=== PATIENT | male | born 1960 | race Caucasian/White ===

== ENCOUNTER → 2018-03-02 14:26 | Outpatient (REF) | payer BC, SELFPAY ==
[2018-03-02 21:59] LABS: ALT 49 U/L (12-78); AST 24 U/L (15-37); Albumin 3.9 g/dL (3.4-5.0); Alkaline Phosphatase 81 U/L (46-116); Anion Gap 9.6 mmol/L (3-11); BUN 12 mg/dL (7-18); Bilirubin, Total 0.6 mg/dL (0.2-1.0); CO2 24.4 mmol/L (21.0-32.0); CREATININE 0.85 mg/dL (0.70-1.30); Calcium 8.7 mg/dL (8.5-10.1); Chloride 102 mmol/L (98-107); Cholesterol 231 mg/dL (50-200); Glucose 90 mg/dL (70-100); HDL Cholesterol 55 mg/dL (40-60); LDL CHOLESTEROL 149 mg/dL (<100); Potassium 3.9 mmol/L (3.5-5.1); Sodium 136 mmol/L (136-145); Total Protein 6.8 g/dL (6.4-8.2); Triglyceride 158 mg/dL (30-150)
== END ==
LOC: NCHCN 14:26
PROVIDERS: PCP Physician Assistant Medical; Visit Provider Physician Assistant Medical
DX: E78.5 Hyperlipidemia, unspecified (principal); I10 Essential (primary) hypertension
CPT/HCPCS: 80053; 80061; 83721

== ENCOUNTER 2018-11-08 16:19 | Outpatient (REF) | payer BC, SELFPAY ==
[2018-11-08 21:33] LABS: ALT 41 U/L (12-78); AST 20 U/L (15-37); Alkaline Phosphatase 87 U/L (46-116); Anion Gap 12.5 mmol/L (3-11); BUN 14 mg/dL (7-18); Bilirubin, Total 0.3 mg/dL (0.2-1.0); CO2 24.5 mmol/L (21.0-32.0); CREATININE 0.79 mg/dL (0.70-1.30); Calcium 9.2 mg/dL (8.5-10.1); Chloride 100 mmol/L (98-107); Cholesterol 240 mg/dL (50-200); Glucose 93 mg/dL (70-100); HDL Cholesterol 54 mg/dL (40-60); LDL CHOLESTEROL 146 mg/dL (<100); Potassium 4.1 mmol/L (3.5-5.1); Sodium 137 mmol/L (136-145); Total Protein 7.2 g/dL (6.4-8.2); Triglyceride 191 mg/dL (30-150)
== END 2018-11-08 16:39 ==
LOC: NCHCN 16:19
PROVIDERS: PCP Physician Assistant Medical; Visit Provider Physician Assistant Medical
DX: Z00.00 Encounter for general adult medical examination without abnormal findings (principal); Z13.220 Encounter for screening for lipoid disorders; Z13.228 Encounter for screening for other metabolic disorders
CPT/HCPCS: 80053; 80061; 83721

== ENCOUNTER 2019-02-03 12:18 | Emergency (ER) | payer BC, SELFPAY ==
[2019-02-03 12:20] VITALS: BP 138/80; PULSE 60; RESP 12; TEMP 37; O2SAT 98
--- NOTE | 2019-02-03 12:40 | W.ED.GENAD ---
Discharge Plan Disposition Patient Disposition: HOME Condition: Fair Discharge Details Chief Complaint: EyeProblem Clinical Impression: Chalazion left upper eyelid Primary Care Provider: Sintia Lambert ED Provider: Jocy Cheng Home Meds and New Rx's Prescriptions: Continued lisinopril 20 MG tablet 20 mg PO DAILY RF: 0 allopurinol 300 MG tablet 300 mg PO DAILY RF: 0 colchicine 0.6 MG capsule 0.6 mg PO PRN RF: 0 Discharge Instructions Instructions: Chalazion (ED) Additional Instructions: The finding of your eyelid is consistent with a chalazion. However, I am concerned he may be developing an infection, please use the erythromycin topical ointment as directed by nursing staff. Apply half-inch to the left eye 4 times daily for the next 5 days. Please use warm compresses to the eye for 10 to 15 minutes 5-6 times daily. Wash this frequently with baby shampoo. If you develop spreading of the redness, increased pain, visual change, fevers or other new/worsening symptoms please seek care urgently once again. Otherwise, I would like you to follow-up with primary care within the next 4 days for reevaluation Referrals: Sintia Lambert PA [Primary Care Provider] - Discharge Data Discharge Date/Time-TO BE ENTERED AT DEPARTURE: 02/03/19 13:00 Medical Decision Making Patient is a 58-year-old male presenting today with chief complaint of swelling and erythema to the left upper lid. He reports that he was struck by something in the left upper lid approximately 2 weeks ago. However, it was not until approximately 2 days ago that he began noting the swelling and erythema. He denies any visual changes. Is endorsing pain, particular with blinking. Denies any fevers or chills. On exam the patient he has a notable chalazion to the central aspect of the left upper lid. The surrounding area is erythematous and warm. He does have a small opening in the center of this. It does not appear to be draining. Consistent with benign process, I am concerned will be opening and the posttraumatic history, not he may have an infectious component to this and I feel that antibiotics are appropriate at this time. Patient will be treated with erythromycin ophthalmic ointment. Encouraged to use compresses to the left eye 5-6 times daily. Advised he wash with baby shampoo. He was given strict return precautions. Advised that he needs a follow-up beginning of this week with primary care for reevaluation. All of his questions and concerns were addressed and he is in agreement this plan. HPI General Mode of arrival: ambulatory. Date/Time Provider Initiated Documentation: 02/03/19 12:40. Limitations to Documentation: no limitations. Information obtained by: patient and RN notes reviewed. History of Present Illness 58 year old M presents to the emergency department with the chief complaint of Left upper eyelid pain and swelling, described as moderate, with intensity rated at 6. Quality is described as burning, and is localized to the eyes. Patient reports no radiation. Patient started experiencing this day(s) (2) and it has been constant. No relieving factors improve symptom(s), No exacerbating factors reported . Patient notes no other symptoms.. Patient did receive the following treatments prior to arrival, none Related Data Home Medications Medication Instructions Recorded Confirmed allopurinol 300 mg PO DAILY tab-cap 01/04/17 02/03/19 colchicine 0.6 mg PO PRN 01/04/17 02/03/19 lisinopril 20 mg PO DAILY tab-cap 01/04/17 02/03/19 Allergies Allergy/AdvReac Type Severity Reaction Status Date / Time No Known Drug Allergies Allergy Unverified 02/03/19 12:23 General Stated Complaint: EyeProblem SUMMER: 4 Review of Systems Constitutional Reports as per HPI, Denies chills, Denies fever(s) and Denies headache(s) Eyes Reports as per HPI, Denies blurry vision, Denies change in vision, Denies eye discharge, Reports irritation (irritation to eye lid), Denies loss of vision, Reports eye pain (pain to lid) and Denies requires corrective lenses ENT Reports as per HPI and Denies headache(s) Cardiovascular Reports as per HPI, Denies chest pain and Denies dyspnea Respiratory Reports as per HPI and Denies dyspnea Gastrointestinal Reports as per HPI, Denies abdominal pain, Denies change in bowel habits, Denies nausea and Denies vomiting Integumentary/Breasts Reports as per HPI and Denies rash Neurologic Reports as per HPI, Denies headache(s) and Denies loss of vision [facility] Medical History AK (actinic keratosis) Gout HTN (hypertension) Smoker Surgical History Arthroscopy, Shoulder Colonoscopy - MAC (01/14/17) Elbow surgery Family History Mother Alzheimer disease Father Essential hypertension Alzheimer disease Social History Smoking/Tobacco Use Status: Current every day Tobacco Type: cigarettes Drug use: Never Do you feel safe at home: Yes Do you feel safe in your relationship?: Yes Exam Const General: cooperative, healthy appearing, comfortable, no acute distress, well developed and well groomed Nutritional Appearance: average body habitus and well nourished Orientation: alert and awake HENOH Head: normal to inspection, normocephalic and atraumatic Ears: hearing grossly normal bilaterally General nose exam: external nose normal and nares normal Face and sinus: normal facial exam Mouth: oral mucosae normal, lip normal and moist mucous membranes Eyes Eyelids: eyelid abnormality left upper eyelid inflamed cyst external lid, erythema (surrounding cyst. Warm to palpation), swelling (does not impeed vision, localized around cyst) and tenderness; without entropian, without foreign bodies, without lacerations, no crusting or scaling of lid margins and ptosis Conjunctivae: conjunctivae normal Sclera: sclerae normal Cornea: corneas normal Pupils: PERRL EOM: EOM intact bilaterally Direct ophthalmoscopy: normal light reflex Neck Neck: normal visual inspection, full ROM, no lymphadenopathy and no meningeal signs Resp Effort & Inspection: normal respiratory effort, able to speak in complete sentences and no respiratory distress Cardio Rate: regular rate Rhythm: regular rhythm Skin General skin exam: erythema (as above) Neuro General: alert and awake Cognition: normal cognition Speech: speech normal Gait: normal gait Psych Appearance: grossly normal and well kempt Mental Status: mental status grossly normal Speech and Movement: speech and movement normal Course Vital Signs Temperature 37.0 C 02/03/19 12:20 Pulse 60 02/03/19 12:20 Respiratory Rate 12 02/03/19 12:20 Blood Pressure 138/80 02/03/19 12:20 Pulse Oximetry 98 02/03/19 12:20 Temperature 37.0 C 02/03/19 12:20 Temperature Source Temporal Artery Scan 02/03/19 12:20 Pulse 60 02/03/19 12:20 Respiratory Rate 12 02/03/19 12:20 Respiratory Effort Non-Labored 02/03/19 12:22 Blood Pressure 138/80 02/03/19 12:20 Blood Pressure Position Sitting 02/03/19 12:20 Pulse Oximetry 98 02/03/19 12:20 Oxygen Delivery Method Room Air 02/03/19 12:20 Oxygen Flow Rate 0 02/03/19 12:20 Pain Level 6 02/03/19 12:20
--- NOTE | 2019-02-03 12:52 | ED.GENADUL_ITS ---
Discharge Plan Disposition Patient Disposition: HOME Condition: Fair Discharge Details Chief Complaint: EyeProblem Clinical Impression: Chalazion left upper eyelid Primary Care Provider: Sintia Lambert ED Provider: Jocy Cheng Home Meds and New Rx's Prescriptions: Continued lisinopril 20 MG tablet 20 mg PO DAILY RF: 0 allopurinol 300 MG tablet 300 mg PO DAILY RF: 0 colchicine 0.6 MG capsule 0.6 mg PO PRN RF: 0 Discharge Instructions Instructions: Chalazion (ED) Additional Instructions: The finding of your eyelid is consistent with a chalazion. However, I am concerned he may be developing an infection, please use the erythromycin topical ointment as directed by nursing staff. Apply half-inch to the left eye 4 times daily for the next 5 days. Please use warm compresses to the eye for 10 to 15 minutes 5-6 times daily. Wash this frequently with baby shampoo. If you develo p spreading of the redness, increased pain, visual change, fevers or other new/worsening symptoms please seek care urgently once again. Otherwise, I would like you to follow-up with primary care within the next 4 days for reevaluation Referrals: Sintia Lambert PA [Primary Care Provider] - Discharge Data Discharge Date/Time-TO BE ENTERED AT DEPARTURE: 02/03/19 13:00 Medical Decision Making Patient is a 58-year-old male presenting today with chief complaint of swelling and erythema to the left upper lid. He reports that he was struck by something in the left upper lid approximately 2 weeks ago. However, it was not until approximately 2 days ago that he began noting the swelling and erythema. He denies any visual changes. Is endorsing pain, particular with blinking. Denies any fevers or chills. On exam the patient he has a notable chalazion to the central aspect of the left upper lid. The surrounding area is erythematous and warm. He does have a small opening in the center of this. It does not appear to be draining. Consistent with benign process, I am concerned will be opening and the posttraumatic history, not he may have an infectious component to this and I feel that antibiotics are appropriate at this time. Patient will be treated with erythromycin ophthalmic ointment. Encouraged to use compresses to the left eye 5-6 times daily. Advised he wash with baby shampoo. He was given strict return precautions. Advised that he needs a follow-up beginning of this week with primary care for reevaluation. All of his questions and concerns were addressed and he is in agreement this plan. HPI General Mode of arrival: ambulatory . Date/Time Provider Initiated Documentation: 02/03/19 12:40 . Limitations to Documentation: no limitations . Information obtained by: patient and RN notes reviewed . History of Present Illness 58 year old M presents to the emergency department with the chief complaint of Left upper eyelid pain and swelling, described as moderate, with intensity rated at 6. Quality is described as burning, and is localized to the eyes. Patient reports no radiation. Patient started experiencing this day(s) (2) and it has been constant. No relieving factors improve symptom(s), No exacerbating factors reported . Patient notes no other symptoms.. Patient did receive the following treatments prior to arrival, none Related Data Home Medications Medication Instructions Recorded Confirmed allopurinol 300 mg PO DAILY tab-cap 01/04/17 02/03/19 colchicine 0.6 mg PO PRN 01/04/17 02/03/19 lisinopril 20 mg PO DAILY tab-cap 01/04/17 02/03/19 Allergies Allergy/AdvReac Type Severity Reaction Status Date / Time No Known Drug Allergies Allergy Unverified 02/03/19 12:23 General Stated Complaint: EyeProblem SUMMER: 4 Review of Systems Constitutional Reports as per HPI, Denies chills, Denies fever(s) and Denies headache(s) Eyes Reports as per HPI, Denies blurry vision, Denies change in vision, Denies eye discharge, Reports irritation (irritation to eye lid), Denies loss of vision, Reports eye pain (pain to lid) and Denies requires corrective lenses ENT Reports as per HPI and Denies headache(s) Cardiovascular Reports as per HPI, Denies chest pain and Denies dyspnea Respiratory Reports as per HPI and Denies dyspnea Gastrointestinal Reports as per HPI, Denies abdominal pain, Denies change in bowel habits, Denies nausea and Denies vomiting Integumentary/Breasts Reports as per HPI and Denies rash Neurologic Reports as per HPI, Denies headache(s) and Denies loss of vision [facility] Medical History AK (actinic keratosis) Gout HTN (hypertension) Smoker Surgical History Arthroscopy, Shoulder Colonoscopy - MAC (01/14/17) Elbow surgery Family History Mother Alzheimer disease Father Essential hypertension Alzheimer disease Social History Smoking/Tobacco Use Status: Current every day Tobacco Type: cigarettes Drug use: Never Do you feel safe at home: Yes Do you feel safe in your relationship?: Yes Exam Const General: cooperative, healthy appearing, comfortable, no acute distress, well developed and well groomed Nutritional Appearance: average body habitus and well nourished Orientation: alert and awake HENMT Head: normal to inspection, normocephalic and atraumatic Ears: hearing grossly normal bilaterally General nose exam: external nose normal and nares normal Face and sinus: normal facial exam Mouth: oral mucosae normal, lip normal and moist mucous membranes Eyes Eyelids: eyelid abnormality left upper eyelid inflamed cyst external lid, erythema (surrounding cyst. Warm to palpation), swelling (does not impeed vision, localized around cyst) and tenderness; without entropian, without foreign bodies, without lacerations, no crusting or scaling of lid margins and ptosis Conjunctivae: conjunctivae normal Sclera: sclerae normal Cornea: corneas normal Pupils: PERRL EOM: EOM intact bilaterally Direct ophthalmoscopy: normal light reflex Neck Neck: normal visual inspection, full ROM, no lymphadenopathy and no meningeal signs Resp Effort & Inspection: normal respiratory effort, able to speak in complete sentences and no respiratory distress Cardio Rate: regular rate Rhythm: regular rhythm Skin General skin exam: erythema (as above) Neuro General: alert and awake Cognition: normal cognition Speech: speech normal Gait: normal gait Psych Appearance: grossly normal and well kempt Mental Status: mental status grossly normal Speech and Movement: speech and movement normal Course Vital Signs Temperature 37.0 C 02/03/19 12:20 Pulse 60 02/03/19 12:20 Respiratory Rate 12 02/03/19 12:20 Blood Pressure 138/80 02/03/19 12:20 Pulse Oximetry 98 02/03/19 12:20 Temperature 37.0 C 02/03/19 12:20 Temperature Source Temporal Artery Scan 02/03/19 12:20 Pulse 60 02/03/19 12:20 Respiratory Rate 12 02/03/19 12:20 Respiratory Effort Non-Labored 02/03/19 12:22 Blood Pressure 138/80 02/03/19 12:20 Blood Pressure Position Sitting 02/03/19 12:20 Pulse Oximetry 98 02/03/19 12:20 Oxygen Delivery Method Room Air 02/03/19 12:20 Oxygen Flow Rate 0 02/03/19 12:20 Pain Level 6 02/03/19 12:20
[2019-02-03] MEDS: Erythromycin Ophth Oint 3.5 GM TUBE OS (13:02)
== END 2019-02-03 13:00 | disposition home or self-care (01) ==
PROVIDERS: Emergency Provider Physician Assistant; PCP Physician Assistant Medical
DX: H00.14 Chalazion left upper eyelid (principal); I10 Essential (primary) hypertension
CPT/HCPCS: 99283

== ENCOUNTER 2019-10-31 20:54 | Outpatient (REF) | payer BC, SELFPAY ==
[2019-10-31 20:19] LABS: Anion Gap 9.4 mmol/L (3-11); BUN 16 mg/dL (7-18); CO2 25.6 mmol/L (21.0-32.0); CREATININE 0.78 mg/dL (0.70-1.30); Calcium 9.5 mg/dL (8.5-10.1); Chloride 100 mmol/L (98-107); Glucose 97 mg/dL (74-106); Potassium 4.4 mmol/L (3.5-5.1); Sodium 135 mmol/L (136-145)
== END 2019-10-31 21:14 ==
LOC: NCHCN 20:54
PROVIDERS: PCP Physician Assistant Medical; Visit Provider Physician Assistant Medical
DX: I10 Essential (primary) hypertension (principal)
CPT/HCPCS: 80048

== ENCOUNTER 2022-03-31 17:00 | Outpatient (REF) | payer OTHER, SELFPAY ==
[2022-03-31 20:54] LABS: ALT 34 U/L (16-63); AST 29 U/L (15-37); Albumin 4.1 g/dL (3.4-5.0); Alkaline Phosphatase 78 U/L (46-116); Anion Gap 11.3 mmol/L (3-11); BUN 19 mg/dL (7-18); Bilirubin, Total 0.5 mg/dL (0.2-1.0); CO2 24.7 mmol/L (21.0-32.0); CREATININE 0.9 mg/dL (0.70-1.30); Calcium 9.3 mg/dL (8.5-10.1); Calculated LDL 88 mg/dL (<100); Chloride 106 mmol/L (98-107); Cholesterol 196 mg/dL (<200); Estimated GFR 97.17 (mL/min/1.73m2); Glucose 99 mg/dL (74-106); HDL Cholesterol 80 mg/dL (40-60); Potassium 3.9 mmol/L (3.5-5.1); Sodium 142 mmol/L (136-145); Total Protein 7.4 g/dL (6.4-8.2); Triglyceride 141 mg/dL (<150)
== END 2022-03-31 17:01 | disposition home or self-care (01) ==
LOC: NCHCN 17:00
PROVIDERS: PCP Physician Assistant Medical; Visit Provider Physician Assistant Medical
DX: E78.5 Hyperlipidemia, unspecified (principal)
CPT/HCPCS: 80053; 80061

== ENCOUNTER 2022-04-13 02:21 | Outpatient (CLI) | payer OTHER, SELFPAY ==
--- NOTE | 2022-04-13 | DI.RAD_ITS ---
Exam(s) XR SHOULDER LT COMPLETE 2+V EXAM: XR SHOULDER LT COMPLETE 2+V CLINICAL HISTORY: LT SHOULDER PAIN, M25.512. TECHNIQUE: 2D digital imaging was performed. Five views. COMPARISON: No exams were available for comparison FINDINGS: BONES: No acute fracture is present. No bony destructive lesion is seen. Degenerative cyst greater t uberosity. JOINTS: No dislocation present. Mild spurring AC joint. Glenohumeral joint space is well maintained . SOFT TISSUE: Normal. IMPRESSION: Mild degenerative changes. DATA REPOSITORY: RADIATION DOSE DELIVERED:
== END 2022-04-13 02:41 ==
PROVIDERS: PCP Physician Assistant Medical; Visit Provider Physician Assistant Medical
DX: M19.012 Primary osteoarthritis, left shoulder (principal)
CPT/HCPCS: 73030

== ENCOUNTER 2022-10-04 09:10 | Emergency (ER) | payer OTHER, SELFPAY ==
[2022-10-04 09:15] VITALS: BP 141/79; PULSE 58; RESP 16; TEMP 36.7; O2SAT 97
--- NOTE | 2022-10-04 10:21 | ED.GENADUL_ITS ---
Discharge Plan Disposition Patient Disposition: Home Condition: Stable Discharge Details Clinical Impression: Skin lesion of back, Sinusitis Primary Care Provider: Sintia Lambert ED Provider: Fabricio Chan Home Meds and New Rx's Prescriptions: New amoxicillin-pot clavulanate 875-125 mg tablet 1 tab PO BID Qty: 14 0RF Continued allopurinol 300 MG tablet 300 mg PO DAILY colchicine 0.6 MG capsule 0.6 mg PO PRN lisinopril 40 mg tablet 40 mg PO DAILY Discharge Instructions Instructions: Sinusitis (ED) Additional Instructions: You have a concerning skin lesion on your back. This needs to be seen by a oracle software engineer as soon as possible for further evaluation. Please take full course of antibiotic as prescribed for sinusitis. Please contact your primary care physician to arrange follow-up. Return to the ER immediately for any worsening or new concerning symptoms. Referrals: [facility] [address] [Outside] Sintia Lambert PA [Primary Care Provider] - Medical Decision Making 61-year-old male smoker with history of unknown skin cancer left ear here with lesion left upper back worsening over the past few weeks. Lesion is concerning for potential malignancy versus reactive process to prior foreign body. I will refer him to be seen by dermatology as soon as possible for biopsy and further diagnostics. Patient also with rhinorrhea and sinus congestion with pain persistent over the past 4 weeks. Consider bacterial sinusitis I will initiate treatment with Augmentin. Usual customary discharge instructions were reviewed with the patient. HPI General Mode of arrival: ambulatory . Date/Time Provider Initiated Documentation: 10/04/22 09:37 . Limitations to Documentation: no limitations . Information obtained by: patient and family . HPI Narrative: 61-year-old male with history of skin cancer left ear presents with chief complaint of skin lesion. Patient notes skin lesion on his back for the past 3 to 4 months. Patient notes he started to experience some discomfort on his back when he was leaning against a piece of wood. He thinks he may have gotten a splinter in his back at that time approximately 4 months ago. He was wearing close that he did not notice in the chair and is closing. Discomfort waxed and waned initially and is now more persistent. Patient notes he cannot see the lesion but that his noticed it was concerning in appearance recently. Patient also notes sinus congestion with sinus headache and rhinorrhea persistent over the past 4 weeks. No associated fever. Related Data Home Medications Medication Instructions Recorded Confirmed allopurinol 300 mg tablet 300 mg PO DAILY 01/04/17 05/26/22 colchicine 0.6 mg capsule 0.6 mg PO PRN 01/04/17 05/26/22 lisinopril 40 mg tablet 40 mg PO DAILY 05/12/22 05/26/22 amoxicillin 875 mg-potassium 1 tab PO BID #14 tabs 10/04/22 clavulanate 125 mg tablet Previous Rx's Medication Instructions Recorded amoxicillin 875 mg-potassium 1 tab PO BID #14 tabs 10/04/22 clavulanate 125 mg tablet Allergies Allergy/AdvReac Type Severity Reaction Status Date / Time atorvastatin [From Lipitor] Allergy Intermediate Verified 05/26/22 13:46 General Stated Complaint: Cellulitis SUMMER: 3 Review of Systems All systems reviewed & are unremarkable except as noted in HPI and below ENT Ears, Nose, Mouth, and Throat: Reports as per HPI Integumentary/Breasts Skin/Breast: Reports as per HPI PFSH All Active Problems (Updated 10/04/22 @ 10:23 by Fabricio Chan MD) Skin lesion of back (Acute) Sinusitis (Acute) Bursitis of left shoulder (Acute) Biceps tendinitis of left shoulder (Acute) Hyperlipidemia (Acute) Shoulder pain, left (Acute) Medical History (Updated 10/04/22 @ 10:23 by Fabricio Chan MD) AK (actinic keratosis) Gout HTN (hypertension) Hx of squamous cell carcinoma of skin Smoker Surgical History Arthroscopy, Shoulder Colonoscopy - MAC (01/14/17) Elbow surgery Family History Mother Alzheimer disease Father Essential hypertension Alzheimer disease Social History Smoking/Tobacco Use Status: Current every day Tobacco Type: cigarettes Smoking risk assessment performed?: Yes Drug use: Never Substance use type: does not use Current gender identity: male Do you feel safe at home: Yes Do you feel safe in your relationship?: Yes Exam Const General: cooperative and no acute distress HENMT Face and sinus: normal facial exam Mouth: moist mucous membranes Throat: posterior oropharynx normal Eyes Conjunctivae: normal conjunctivae Sclera: normal sclerae EOM: EOM intact bilaterally Neck Neck: trachea midline and supple Resp Auscultation: clear to auscultation bilaterally, no rales, no rhonchi and no wheezes Cardio Rate: regular rate and not tachycardic Rhythm: regular rhythm Heart Sounds: murmur systolic II/ Skin Lesions: lesion noted (Left upper back ulcerated lesion with irregular border, no active bleeding) Neuro General: patient alert, patient awake and tone normal Extrem General: no edema Psych Appearance: grossly normal Mental Status: mental status grossly normal Course Vital Signs Vital signs: Vital Signs Temperature 36.7 C 10/04/22 09:15 Pulse 58 L 10/04/22 09:15 Respiratory Rate 16 10/04/22 09:15 Blood Pressure 141/79 H 10/04/22 09:15 Pulse Oximetry 97 10/04/22 09:15 Temperature 36.7 C 10/04/22 09:15 Temperature Source Oral 10/04/22 09:15 Pulse 58 L 10/04/22 09:15 Respiratory Rate 16 10/04/22 09:15 Respiratory Effort Normal 10/04/22 09:20 Blood Pressure 141/79 H 10/04/22 09:15 Blood Pressure Position Sitting 10/04/22 09:15 Pulse Oximetry 97 10/04/22 09:15 Oxygen Delivery Method Room Air 10/04/22 09:15 Oxygen Flow Rate 0 10/04/22 09:15 Pain Level 10 10/04/22 09:15
[2022-10-04 10:32] VITALS: BP 138/75; PULSE 57; RESP 16; TEMP 36.4; O2SAT 95
--- NOTE | 2022-10-04 11:18 | NUR.NOTE ---
Nursing Note: Referral given to Care Management for [facility] back lesion, concern for cancer, needs biopsy/ JENY, within the next few weeks,
--- NOTE | 2022-10-05 11:36 | CMACTNOTE_ITS ---
- If Service Date Differs Date of service: 10/05/22 Time of Service: 11:36 Care Management Activity Note Andrew is seen in the ED for a skin lesion on his back and sinusitis. At the request of ED provider, CM coordinates a referral to [facility] to assist Andrew in obtaining an appointment for evaluation and treatment of the back lesion.
== END 2022-10-04 10:34 | disposition home or self-care (01) ==
PROVIDERS: Emergency Provider Student in an Organized Health Care Education/Training Program; PCP Physician Assistant Medical
DX: L98.8 Other specified disorders of the skin and subcutaneous tissue (principal); J01.80 Other acute sinusitis; Z85.828 Personal history of other malignant neoplasm of skin
CPT/HCPCS: 99283; 99284

== ENCOUNTER 2023-02-07 15:50 | Outpatient (REF) | payer MEDICAID, SELFPAY ==
--- NOTE | 2023-02-07 15:00 | SKI_PTH ---
PATIENT: Andrew Zhou LOC: [facility] U#:[id number] AGE/SX: 62/M ROOM: RE02/07/[address]: Danyell Salazar : 1960 BED: DIS: 02/07/2023 SPEC #: [id number] RECD: 02/07/23 18:28 STATUS: SANDOR RESherwin #: [id number] ALEX: 02/07/23 15:[address]: Danyell Salazar DEPT: Surgical Specimen RECD BY: Gala Barrera ENTERED: 02/07/23 18:28 SP TYPE: MACARIO HO DR: Sintia Lambert Tissues: 1 - SKIN BIOPSY(SHAVE/PUNCH) Procedures: SKIN LEVEL 4 Comments: [id number]
== END 2023-02-07 15:51 | disposition home or self-care (01) ==
LOC: NCHCN 15:50
PROVIDERS: PCP Physician Assistant Medical; Visit Provider Family Medicine
DX: L57.0 Actinic keratosis (principal); L98.499 Non-pressure chronic ulcer of skin of other sites with unspecified severity; C44.519 Basal cell carcinoma of skin of other part of trunk
CPT/HCPCS: 87077; 87070; 87205; 88305

== ENCOUNTER 2023-07-08 07:39 | Emergency (ER) | payer MEDICAID, SELFPAY ==
[2023-07-08 07:41] VITALS: BP 129/85; PULSE 71; RESP 18; TEMP 36.6; O2SAT 98
[2023-07-08 07:47] VITALS: BP 129/85; PULSE 71; RESP 18; TEMP 36.6; O2SAT 99
[2023-07-08 07:48] VITALS: RESP 18
--- NOTE | 2023-07-08 07:50 | NUR.NOTE ---
Nursing Note: patient states x1 year ago he injured shoulder at work been to PCP and physical therapy. Worse with movement. Increased pain over the last week.
--- NOTE | 2023-07-08 08:07 | ED.GENADUL_ITS ---
Discharge Plan Disposition Patient Disposition: Home Condition: Good Discharge Details Clinical Impression: Sinusitis, Left shoulder pain Primary Care Provider: Sintia Lambert ED Provider: Kayode Wells Home Meds and New Rx's Prescriptions: New amoxicillin-pot clavulanate 875-125 mg tablet 1 tab PO BID 14 Days Qty: 28 0RF lidocaine [Lidoderm] 5 % adhesive patch,medicated 1 patch Topical Q24H Qty: 15 0RF fluticasone propionate 50 mcg/actuation spray,suspension 16 g NS BID Qty: 16 0RF Discontinued amoxicillin-pot clavulanate 875-125 mg tablet 1 tab PO BID Qty: 14 0RF No Action allopurinol 300 MG tablet 300 mg PO DAILY colchicine 0.6 MG capsule 0.6 mg PO PRN lisinopril 40 mg tablet 40 mg PO DAILY Discharge Instructions Instructions: Sinusitis (ED), Shoulder Pain (ED) Additional Instructions: At this time you have evidence of sinusitis. Please take the antibiotic as prescribed. Has been sent to your pharmacy on file. As we discussed together I have concern that you have chronic irritation of your tendons, ligaments and bursa. This may require potential MRI, steroid injections and potential surgery. This will be dependent upon the evaluation/repeat evaluation by the orthopedic mechanic. Please follow-up closely with them when they contact you for an appointment time. In the meantime, I would like you to do the following for pain treatment. This is not the solution, but may help improve the pain slightly. Please continue taking your Aleve as directed. Please apply the Lidoderm patches as prescribed. Please apply a generous amount of the Voltaren gel to your shoulder 3-4 times per day. Please take 1000 mg of Tylenol 3 times a day for the next 1 to 2 weeks. If you notice any worsening of your symptoms, or any new symptoms such as vomiting, diarrhea, fever, chills, shortness of breath, chest pain, numbness, weakness, or fainting , please return immediately to the emergency department for reevaluation. Please follow up with your primary care provider as soon as possible for reassessment and reevaluation. As always, it was a pleasure participating in your medical care today. Referrals: Jose Manuel Strickland MD [ [facility] STAFF PHYSICIAN] - Zach Kyle MD [ [facility] STAFF PHYSICIAN] - Sintia Lambert PA [Primary Care Provider] - Medical Decision Making 62-year-old male with past medical history of high cholesterol, tobacco use, hypertension, actinic keratosis, previous gout, presents today for evaluation of sinus congestion and left shoulder pain. Patient is left-hand dominant. In regards to the sinus congestion the patient got cough/cold/upper respiratory infection 6 weeks ago, shortly thereafter developed sinus frontal pressure, nasal drainage and discharge. This is continued for the subsequent 6 weeks, with nearly 4 to 5 weeks of green notable sinus drainage and discharge. No black discharge or blood. He denies any headache but does admit to some frontal sinus pressure. The patient does smoke. He denies any fever or night sweats. He denies any vision changes. He denies any history of HIV or IV drug use. He has not been on any antibiotics. He denies any new cough or shortness of breath. No other complaints at this time in regards to that. In regards to the shoulder patient states that 1 year ago he was carrying a 2 x 12 and fell which caused significant yarding on his left shoulder. The torsional and torquing force caused significant pain. He was seen and assessed by orthopedics, x-ray was negative, and he was started on physical therapy. Unfortunately this caused significant pain and no improvement. He stopped doing physical therapy greater than 6 months ago. 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 This causes significant pain in general. Over the last few days he has been doing a roof and laying a fair amount of rafters, which required significant shoulder activity. He has been taking Aleve, IcyHot, and has had no improvement with his symptoms. He appears to be at his wits end. He has not followed back up with orthopedics secondary to his frustration with the physical therapy visits. He denies any numbness or tingling. No chest pain or shortness of breath. No new trauma. Pain is made worse with movements of the shoulder and virtually every direction. Physical exam demonstrates well-appearing male, mild sinus pressure. No abnorm alities otherwise in the head. No red flags to suggest opportunistic fungal infection. Symptoms and longevity are concerning for sinusitis with 6 weeks of infection I do feel indicates antibacterial treatment. We will give the patient Augmentin for 2 weeks for treatment of this. Will also give steroid nasal spray for treatment. In regards to the patient's shoulder, he has range of motion restrictions, pain in all directions, there does not appear to be any evidence of acute trauma. I am concerned for chronic bursitis and tendon damage from his previous injury. Gout/tophaceous gout seems clinically unlikely given assessment. I did discuss risks and benefits of x-ray at this time, the benefits appear to be very little, and I do feel that potential nonemergent MRI may be the next best step at this stage. We will slightly change the patient's pain medication regimen to add Voltaren gel Lidoderm patch and Tylenol in addition to he is currently utilized Aleve. I do not feel that this is the solution, but may help in slight temporization. I did discuss with him that he did undergo the appropriate order of events with orthopedic assessment, followed by physical therapy. While he was frustrated with how this initially went, he does understand that this was the natural process for which we initially assess and manage these things. However with his continued pain a year out, I do feel that reevaluation and potential reimaging may be indicated now. We will place a follow-up referral with orthopedics. Symptoms appear clinically inconsistent with ACS. Discussed red flags for which to return. I have extensively reviewed the treatment plan and discharge instructions with the patient. I have addressed all patient concerns at this time. The patient was made aware of what symptoms to monitor for that would warrant a return to the emergency department. Discussed the plan with the patient, they demonstrate verbal understanding and agreement with our assessment and plan at this time. The documentation in this chart was dictated using [employer] dictation software. Please excuse any dictation errors. HPI General Date/Time Provider Initiated Documentation: 07/08/23 07:40 . HPI Narrative: 62-year-old male with past medical history of high cholesterol, tobacco use, hypertension, actinic keratosis, previous gout, presents today for evaluation of sinus congestion and left shoulder pain. Patient is left-hand dominant. In regards to the sinus congestion the patient got cough/cold/upper respiratory infection 6 weeks ago, shortly thereafter developed sinus frontal pressure, nasal drainage and discharge. This is continued for the subsequent 6 weeks, with nearly 4 to 5 weeks of green notable sinus drainage and discharge. No black discharge or blood. He denies any headache but does admit to some frontal sinus pressure. The patient does smoke. He denies any fever or night sweats. He denies any vision changes. He denies any history of HIV or IV drug use. He has not been on any antibiotics. He denies any new cough or shortness of breath. No other complaints at this time in regards to that. In regards to the shoulder patient states that 1 year ago he was carrying a 2 x 12 and fell which caused significant yarding on his left shoulder. The torsional and torquing force caused significant pain. He was seen and assessed by orthopedics, x-ray was negative, and he was started on physical therapy. Unfortunately this caused significant pain and no improvement. He stopped doing physical therapy greater than 6 months ago. 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 This causes significant pain in general. Over the last few days he has been doing a roof and laying a fair amount of rafters, which required significant shoulder activity. He has been taking Aleve, IcyHot, and has had no improvement with his symptoms. He appears to be at his wits end. He has not followed back up with orthopedics secondary to his frustration with the physical therapy visits. He denies any numbness or tingling. No chest pain or shortness of breath. No new trauma. Pain is made worse with movements of the shoulder and virtually every direction. Related Data Home Medications Medication Instructions Recorded Confirmed allopurinol 300 mg tablet 300 mg PO DAILY 01/04/17 05/26/22 colchicine 0.6 mg capsule 0.6 mg PO PRN 01/04/17 05/26/22 lisinopril 40 mg tablet 40 mg PO DAILY 05/12/22 05/26/22 amoxicillin 875 mg-potassium 1 tab PO BID 14 days #28 tabs 07/08/23 clavulanate 125 mg tablet fluticasone propionate 50 16 g NS BID #16 grams 07/08/23 mcg/actuation nasal spray,suspension lidocaine 5 % topical patch 1 patch topical Q24H #15 ea 07/08/23 (Lidoderm) Previous Rx's Medication Instructions Recorded amoxicillin 875 mg-potassium 1 tab PO BID 14 days #28 tabs 07/08/23 clavulanate 125 mg tablet fluticasone propionate 50 16 g NS BID #16 grams 07/08/23 mcg/actuation nasal spray,suspension lidocaine 5 % topical patch 1 patch topical Q24H #15 ea 07/08/23 (Lidoderm) Allergies Allergy/AdvReac Type Severity Reaction Status Date / Time atorvastatin [From Lipitor] Allergy Intermediate Verified 05/26/22 13:46 General Stated Complaint: [facility] SUMMER: 4 PFSH All Active Problems Left shoulder pain (Acute) Sinusitis (Acute) Bursitis of left shoulder (Acute) Biceps tendinitis of left shoulder (Acute) Hyperlipidemia (Acute) Shoulder pain, left (Acute) Medical History Hx of squamous cell carcinoma of skin Smoker HTN (hypertension) AK (actinic keratosis) Gout Surgical History Elbow surgery Colonoscopy - [facility] (01/14/17) Arthroscopy, Shoulder Family History Mother Alzheimer disease Father Essential hypertension Alzheimer disease Social History Smoking/Tobacco Use Status: Current every day Tobacco Type: cigarettes Smoking risk assessment performed?: Yes Alcohol Intake: current Drug use: Never Substance use type: does not use Current gender identity: male Do you feel safe at home: Yes Do you feel safe in your relationship?: Yes Exam Narrative Exam Narrative: 1.Const: Well-nourished, Well-developed, appearing stated age 2.Eyes: PERRL, no conjunctival injection, and symmetrical lids. 3.ENT: Atraumatic external nose and ears. Moist MM. Neck: Symmetric, trachea midline, No thyromegaly. Tympanic membranes are quintanilla and pearly. No black or discolored abnormalities noted on nasal exam. Turbinates appear unremarkable. Mild pressure on palpation of the frontal and maxillary sinuses. No significant erythema in the posterior oropharynx. 4.CVS: +S1/S2, No murmurs or gallops. Peripheral pulses 2+ and equal in all extremities. Brisk capillary refill in all extremities. 5.RESP: Unlabored respiratory effort. Clear to auscultation bilaterally. No wheezes rales or rhonchi 6.GI: Soft, Nontender/Nondistended, No hepatosplenomegaly. No guarding or rebound. 7.MSK: Normocephalic/Atraumatic, Extremities w/o deformity. No cyanosis or clubbing, right upper extremity unremarkable on exam. Left upper extremity demonstrates notable range of motion restriction, tenderness throughout, no swelling. No crepitus or crunching to suggest tophaceous gout or severe gouty shoulder. Pain with all ranges of motion in the shoulder. 8.Skin: Warm, Dry. No rashes or lesions. 9.Neuro: certified dental assistant II-XII grossly intact. Sensation grossly intact, no focal neurologic deficits. 10.Psych: (AAO) x3. Appropriate mood and affect Course Vital Signs Vital signs: Vital Signs Temperature 36.6 C 07/08/23 07:41 Pulse 71 07/08/23 07:41 Respiratory Rate 18 07/08/23 07:41 Blood Pressure 129/85 07/08/23 07:41 Pulse Oximetry 98 07/08/23 07:41 Temperature 36.6 C 07/08/23 07:47 Temperature Source Temporal Artery Scan 07/08/23 07:47 Pulse 71 07/08/23 07:47 Respiratory Rate 18 07/08/23 07:48 Respiratory Effort Normal 07/08/23 07:48 Respiratory Depth Normal 07/08/23 07:48 Respiratory Pattern Normal 07/08/23 07:48 Blood Pressure 129/85 07/08/23 07:47 Pulse Oximetry 99 07/08/23 07:47 Oxygen Delivery Method Room Air 07/08/23 07:47 Oxygen Flow Rate 0 07/08/23 07:41 Pain Level 8 07/08/23 07:47 PAWSS Have you Been Recently Intoxicated or Drunk Within the Last 30 days?: No Have you Ever Experienced Previous Episodes of Alcohol Withdrawal?: No Have you ever Experienced Withdrawal Seizures?: No Have you ever Experienced Delirium Tremens(DT)s?: No Have you ever undergone Alcohol Rehabilitation Treatment (i.e, inpt ot outpatient treatment programs)?: No Have you ever Experienced Blackouts?: No Have you ever Combined Alcohol with other Downers within the last 90 days?: No Have you ever Combined Alcohol with any other Substance of Abuse during the last 90 days?: No Result: 0
[2023-07-08] MEDS: Acetaminophen 500 MG TAB 1000 MG PO (08:11)
[2023-07-08] MEDS: Diclofenac 1% Gel 100 GM TUBE TP (08:11)
[2023-07-08] MEDS: Lidocaine 5% Patch 1 PATCH TP (08:11)
--- NOTE | 2023-07-09 17:54 | NUR.NOTE ---
Referral faxed to [facility] for worsening shoulder pain, follow up 2 weeks if possible. Nursing Note:
== END 2023-07-08 08:18 | disposition home or self-care (01) ==
PROVIDERS: Emergency Provider Student in an Organized Health Care Education/Training Program; PCP Physician Assistant Medical
DX: J32.9 Chronic sinusitis, unspecified (principal); M25.512 Pain in left shoulder; W19.XXXA Unspecified fall, initial encounter; I10 Essential (primary) hypertension; F17.200 Nicotine dependence, unspecified, uncomplicated; E78.00 Pure hypercholesterolemia, unspecified
CPT/HCPCS: 99283

== ENCOUNTER → 2023-08-16 03:05 | Outpatient (CLI) | payer MEDICAID, SELFPAY ==
--- NOTE | 2023-08-16 07:30 | DI.MRI_ITS ---
Exam(s) MR UPPER JOINT LT WO EXAM: MR UPPER JOINT LT WO CLINICAL HISTORY: L SHOULDER PAIN,LT ROTATOR CUFF TEAR,BURSITIS,BICEPS TENDINITIS,M25.512, TECHNIQUE: Multiplanar multisequence MRI of the shoulder was performed. COMPARISON: CR XR SHOULDER LT COMPLETE 2+V from 04/13/2022 FINDINGS: MARROW:There is no evidence of fracture, Hill-Sachs deformity, nor ominous osseous lesions. GLENOHUMERAL JOINT: No joint effusion nor obvious loose intra-articular bodies. No chondral defects. No osteophytes. There are no degenerative subarticular cysts in the osseous glenoid. There is, how ever, a degenerative cyst in the sabina- lateral humeral head measuring 1.3 x 0.7 cm,. No evidence o f capsular tear. The inferior glenohumeral ligament is intact. ROTATOR CUFF MECHANISM: AC JOINT/ACROMIUM: Mild degenerative changes in the AC joint.. There is no evidence of os acromiale. Supraspinatus: There is a full-thickness tear of the supraspinatus at the mid humeral head level, thi s superimposed upon tendinitis signal in the tendon. The width of the tear is 9 mm. The AP measurem ent of the tear is 1.5 cm. No prominent muscle atrophy. Infraspinatus: There is insertional tendinitis but no tear of the infraspinatus tendon. Teres Minor: Intact. No evidence of tear nor muscle atrophy. Subscapularis/anterior cuff: Intact. No abnormal signal at the level of the multipennate insertional fibers. No significant tear nor atrophy. BICEPS TENDON: Exhibits normal position within the intertubercular groove. No evidence of tear. However there is some fluid in the biceps tendon sheath in the intertubercular groove consistent with tenosynovitis. There is no loose body at this level. LABRUM: No labral tear identified. No evidence of paralabral cyst. QUADRILATERAL SPACE: No evidence of mass in the region of the axillary nerve and dorsal circumflex hu meral vessels. Visualized triceps muscle at this level appears unremarkable. IMPRESSION: 1. The main finding here is significant full-thickness tear rotator cuff tear of the supraspinatus as described above. This is superimposed upon tendinosis signal. 2. No evidence of biceps tendon tear nor labral tears. Mild fluid noted in the biceps tendon indicat ing mild tenosynovitis. There is no loose intra-articular body at this level nor elsewhere in the ami int. There is no significant glenohumeral joint effusion. Small amount of fluid noted in the subacr omial space due to the full-thickness supraspinatus tear. 3. Minimal degenerative changes. No osteophytes. There is a solitary degenerative cyst in the anter ior aspect of the greater tuberosity measuring 13 x 7 mm. DATA REPOSITORY:
== END ==
PROVIDERS: PCP Physician Assistant Medical; Visit Provider Student in an Organized Health Care Education/Training Program
DX: M75.122 Complete rotator cuff tear or rupture of left shoulder, not specified as traumatic (principal); M75.22 Bicipital tendinitis, left shoulder; M75.52 Bursitis of left shoulder
CPT/HCPCS: 73221

== ENCOUNTER 2023-08-26 10:50 | Day surgery (SDC) | payer MEDICAID, SELFPAY ==
[2023-08-26] VITALS (9 sets, daily range): BP systolic 122–153; BP diastolic 65–89; PULSE 59–71; RESP 13–26; TEMP 36–37.1; O2SAT 94–99; BMI 21.3
--- NOTE | 2023-08-26 07:29 | W.PM.DSUDISC ---
Date of service: 08/26/23 Time of Service: 15:00 Discharge Plan Disposition Patient Disposition: Home Condition: Stable Discharge Details Attending Provider: Jose Manuel Strickland Primary Care Provider: Sintia Lambert Home Meds and New Rx's Prescriptions: New naproxen 250 mg tablet 250 - 500 mg PO BID PRNQty: 40 0RF Rx Instructions: take with a meal aspirin 81 mg tablet,delayed release (DR/EC) 81 mg PO DAILY 7 Days Qty: 7 0RF oxycodone 5 mg tablet 5 - 10 mg PO Q4H MDD 30 mg PRN (Reason: moderate to severe pain) Qty: 18 0RF Continued allopurinol 300 MG tablet 300 mg PO DAILY colchicine 0.6 MG capsule 0.6 mg PO PRN lisinopril 40 mg tablet 40 mg PO DAILY lidocaine [Lidoderm] 5 % adhesive patch,medicated 1 patch Topical Q24H Qty: 15 0RF fluticasone propionate 50 mcg/actuation spray,suspension 16 g NS BID Qty: 16 0RF Discontinued naproxen sodium [Aleve] 220 mg capsule 220 mg PO ONCE Discharge Instructions Additional Instructions: Surgery: Left shoulder arthroscopy with rotator cuff repair (trans-tendinous supraspinatus), biceps tenodesis, extensive debridement, and subacromial decompression. Activity: For 6 weeks, you should keep your arm at your side in a neutral position at all times except for physical therapy. Do not try to lift or raise your arm using your own muscles. You should use the sling whenever you are out of the house. You may have to adjust the abduction pillow or remove it for comfort. At home it is best to remove the sling and rest the arm on a pillow at your side or support the operative side with your other hand. You may allow the arm to dangle at your side. A physical therapy prescription will be sent electronically to begin in about 3 weeks. CONSERVATIVE protocol. Prescriptions: Aspirin 81 mg take 1 daily to prevent a blood clot for 7 days Naproxen 250 mg take 1-2 every 12 hours with a meal as needed for moderate pain Oxycodone 5 mg take 1-2 every 4-6 hours as needed for severe pain You may use [id number] Tylenol (acetaminophen) as needed for mild pain. These pain medications may be taken all at once or in different combinations as needed. Also, recommend Colace (docusate) as a stool softener as surgery and pain medicine cause constipation. You may try [id number] diphenhydramine (Benadryl) 25-50 mg nightly as a sleep aid Dressings: Remove shoulder bandage after 3 days. Leave the sticky Steri-Strips in place until they fall off or remove them after you shower. Cover the incisions with Band-Aids or leave them open to air. You may shower after 5 days. Follow-up: 10-[address] Strickland You may take off the leg compression stockings this evening at home. You may also leave them on a few days longer if you have a history of leg swelling or edema. Let us know right away if you develop any redness, drainage, fevers, chest pain, or trouble breathing. Do not drink alcohol or drive for at least 24 hours after anesthesia. Please call the office during business hours with any questions or concerns. Discharge Orders Discharge Orders: Discharge Order (Routine); Ordered 08/26/23 Ordered By: Jose Manuel Strickland DS: Diagnosis Discharge Diagnosis (1) Left rotator cuff tear: Status: Suspected
--- NOTE | 2023-08-26 11:29 | W.ANESPRE ---
General Info Date of Service Date Performed: 08/26/23 Height: 6 ft 2 in Weight: 75.4 kg Body Mass Index (BMI): 21.3 Surgical Procedure: Operation Date: 08/26/23 12:25 Proposed Procedure Side Surgeon p Shoulder Rotator Cuff Arthroscopic w/Extensive Debridement, Biceps Tenodesis, Subacromial Decompression Left Jose Manuel Strickland MD Meds Allergies and Home Medications Allergies Allergy/AdvReac Type Severity Reaction Status Date / Time atorvastatin [From Lipitor] Allergy Intermediate Verified 08/26/23 11:09 Home Medication Medication Instructions Recorded allopurinol 300 mg tablet 300 mg PO DAILY 01/04/17 colchicine 0.6 mg capsule 0.6 mg PO PRN 01/04/17 lisinopril 40 mg tablet 40 mg PO DAILY 05/12/22 fluticasone propionate 50 16 g NS BID #16 grams 07/08/23 mcg/actuation nasal spray,suspension lidocaine 5 % topical patch 1 patch topical Q24H #15 ea 07/08/23 (Lidoderm) naproxen sodium 220 mg capsule 220 mg PO ONCE 08/26/23 (Aleve) Current Visit Medications: Current Medications Generic Name Dose Route Start Last Admin Trade Name Freq PRN Reason Stop Dose Admin Ringer's Solution 1,000 mls @ 30 mls/hr 08/26/23 06:00 IV 08/26/23 23:59 INFUSION SEDA Cefazolin Sodium/Dextrose 2 gm in 50 mls @ 100 mls/hr 08/26/23 06:00 Ancef Duplex IVPB 08/26/23 23:59 PREOP SEDA IV Miscellaneous Supplies 1 each 08/26/23 06:00 Iv Access IV 08/26/23 23:59 DIRECTED SEDA Oxycodone HCl 0 mg 08/26/23 07:29 Oxycodone 5 Mg Tab PO 09/25/23 07:28 Q3H PRN PRN Pain Sodium Chloride 0 ml 08/26/23 06:00 Normal Saline Flush 10 Ml Syr IV 08/26/23 23:59 PRN PRN Sodium Chloride 0 ml 08/26/23 06:00 Normal Saline 10 Ml Vial IJ 08/26/23 23:59 DIRECTED PRN Sterile Water 0 ml 08/26/23 06:00 Water,Injection,Sterile 10 Ml Vial IJ 08/26/23 23:59 DIRECTED PRN PFSH Active Problems Active Problems: Problem Status Onset Code Bursitis of left shoulder M75.52 Biceps tendinitis of left shoulder M75.22 Hyperlipidemia E78.5 Shoulder pain, left M25.512 Medical History Medical History Hx of squamous cell carcinoma of skin Smoker HTN (hypertension) AK (actinic keratosis) Gout Surgical History Surgical History Hx of inguinal hernia repair Elbow surgery Colonoscopy - MAC (01/14/17) Arthroscopy, Shoulder Tobacco Smoking/Tobacco Use Status: Current every day Tobacco Type: cigarettes Smoking cigarettes per day: 13 Alcohol Alcohol Intake: current Alcohol intake frequency: 0-2 drinks per day Alcohol type: beer Substance Use Substance use: Never Substance use type: does not use Details: alcohol: t-1, one drink Vital Signs and Lab Results Vital Signs Most Recent Vital Signs in EMR: Most Recent Vital Signs Temp Pulse Resp BP Pulse Ox 36.7 C 71 18 126/65 96 08/26/23 11:17 08/26/23 11:17 08/26/23 11:17 08/26/23 11:17 08/26/23 11:17 Lab Results Blood Type / Crossmatch: No Data to Display Complete Blood Count: No Data to Display Complete Metabolic Panel: No Data to Display Liver Function Panel: No Data to Display Coagulation Panel: No Data to Display Cardiac Panel: No Data to Display Arterial Blood Gas: No Data to Display Venous Blood Gas: No Data to Display Pancreas Panel: No Data to Display Thyroid Panel: No Data to Display Infectious Disease: No Data to Display Blood Cultures: No Data to Display Toxicology Panel: No Data to Display Imaging and Studies Imaging and Studies Study information below may be from another EMR and interpreted by another provider. Please see original notes in EMR for more complete details. Pulmonary Function Summary: Pulmonary Function Test PATIENT NAME: CARLOS VANCE UNIT #: [id number] ADMITTING PROVIDER: ROXANN BAIRD MD PRIMARY CARE PROVIDER: ADEOLA MACIAS NP DATE OF ADMIT: 10/22/15 : 1960 PULMONARY FUNCTION TEST REPORT DATE OF SERVICE: October 22, 2015 REQUESTING PROVIDER: Kaila Navarro NP INTERPRETATION OF STUDY: Spirometry shows mild obstructive airways disease with no significant bronchodilator response. LUNG VOLUMES: Show no evidence of restriction. DIFFUSION CAPACITY: Normal. AIRWAYS RESISTANCE: Normal. IMPRESSION: Mild obstructive airways disease with no significant bronchodilator response. Clinical correlation recommended. Roxann Baird M.D. ALETA/shamar D/T: 10/22 cc: Kaila Navarro NP document embedded image document embedded image Dictated by: BOB SANTIAGO, ROXANN Dict Date: 10/23/15 Dict Time: 08 <Electronically signed by ROXANN BAIRD MD> Date: 10/23/15 Time: 4213 Anesthesia Assessment and Plan Anesthesia History Personal History: No History of Anesthesia Complications Family History: No Family History of Anesthesia Complications Exercise Tolerance Exercise Tolerance: Metabolic Equivalents>4 Pertinent Negatives Pertinent Negatives: No Symptoms of GERD, No Major Cardiovascular Symptoms or Complaints, No Major Pulmonary Symptoms or Complaints and No History of CVA/TIA Cardiac & Pulmonary Exam Cardiac Exam: Normal S1/S2 Heart Sounds Pulmonary Exam: Clear Bilateral Breath Sounds Implantable Cardiac Device Does patient have a Pacemaker or an ICD?: No Airway Exam Known Difficult Airway: No Mallampati Class: 3 Mouth Opening: Normal (> 3cm) Thyromental Distance: Greater than 3 cm Neck Range of Motion: Limited ROM Neck Circumference: Normal Teeth Condition: Normal Dentition ASA Classification ASA Score: ASA 2 Emergency Case?: No NPO Status NPO Status: NPO Clears >2 hours, Solids >8 hours Anesthesia Plan Resuscitation Status: Full Code Anesthesia Technique: General Anesthesia Airway Planned: Endotracheal Tube Pain Management: Surgeon and patient request nerve block (Interscalene) Monitors Used: Standard Monitors and SedLine
[2023-08-26] MEDS: Lactated Ringers 1,000 ML 30 ML IV (11:40)
--- NOTE | 2023-08-26 12:30 | W.PM.OP ---
Date of service: 08/26/23 Time of Service: 12:30 Operative Note Operative Note DATE OF PROCEDURE: 08/26/23 PRE-OP DIAGNOSIS: Left: 1. Rotator cuff tear 2. LHB tendinopathy 3. Impingement POST-OP DIAGNOSIS: same PROCEDURE: Left: 1. Rotator cuff repair, CPT# 61860. This involved repair of the supraspinatus using anchor and sutures to reattach the rotator cuff to the greater tuberosity 2. Arthroscopic biceps tenodesis, CPT# 00852. This involved arthroscopically suturing and reattaching the long head of the biceps tendon to the proximal humerus at the superior margin of the bicipital groove with a screw at the correct tension. 3. Extensive debridement, CPT# 89348. This involved using arthroscopic hand instruments, power instruments, and radiofrequency instruments to release the long head of the biceps tendon and debride areas of anterior labral tearing, SLAP tear, rotator interval synovitis, and chondromalacia about the biceps groove and anterior superior humeral head working within the glenohumeral joint anteriorly, superiorly and posteriorly. 4. Subacromial decompression with partial acromioplasty, CPT# 46657. This involved using arthroscopic power instruments and a radiofrequency wand to complete a bursectomy and smooth the undersurface of the acromion. The assistant program manager was medically required in order to help assist in techniques above, which require positioning the arm, holding the arthroscope, and manipulating multiple instruments and sutures at the same time. This cannot be done without the help of an experienced assistant program manager. SURGEON: Jose Manuel Strickland MEDICAL MASSAGE THERAPIST: Kesha Moore ANESTHESIA TYPE: General LMA/ETT and Primary Nerve Block Refer to Anesthesia Record ESTIMATED BLOOD LOSS: 10 PATHOLOGY: none sent COMPLICATIONS: None Patient was transported to: PACU Patient's condition: stable Implants: Arthrex: 4.75mm SwiveLocks x 2 Indications: The patient was diagnosed with the above conditions and appropriately indicated for surgical intervention. Please see complete medical record for details. Findings: Exam under anesthesia: Full range of motion, no instability Glenohumeral joint: Largely preserved articular cartilage with mild articular fraying anteriorly and superiorly between the bicipital groove and the small exposed area of the greater tuberosity rotator cuff footprint. Intact subscapularis. Mild anterior and superior labral and SLAP tearing. Significant biceps partial tearing intra-articular segment and injection closer to the groove. Subacromial space: Impinging centrally over the tear undersurface acromial bone spurring. Complex medial trans tendinous supraspinatus rotator cuff tear with moderate retraction. Largely intact infraspinatus. Morgan lateral supraspinatus tendon remnant. Procedure Description: In the operating room, general anesthesia was induced. Bilateral shoulders were examined. The patient was positioned in the beachchair position. All bony prominences were well-padded. Preoperative antibiotics were administered. The shoulder was prepped and draped in the usual sterile fashion. The correct patient, procedure, and side of the procedure were all verified prior to incision. Starting through the posterior portal a standard complete diagnostic arthroscopy was performed of the glenohumeral joint including inspection of the long head of the biceps, anterior and superior labrum, subscapularis tendon, supraspinatus and infraspinatus tendons, and axillary recess. The glenoid and humeral head cartilage as well as the posterior labrum were inspected from a superior anterior viewing portal. Significant findings and interventions noted above. Working through the superior anterior lateral portal through the full-thickness rotator cuff defect, an all-arthroscopic suprapectoral biceps tenodesis was performed using a Loop N Tack method with a SutureTape FiberLink cinched around and through the tendon and then back around the tendon again and secured with no other loop given the somewhat diminutive and poor tendon quality. The biceps was tenotomized from the labrum and fixated with a suture anchor at the superior margin of the bicipital groove. Starting through the posterior portal, the arthroscope was directed into the subacromial space. A lateral 50 yard line lateral portal was created. A combination of power instruments and a radiofrequency ablator were used to debride bursitis anteriorly, posteriorly, and laterally as well as expose and smooth bone spurring on the undersurface of the acromion. The coracoacromial ligament was partially released. The bursectomy was completed viewing laterally and working from posteriorly and the rotator cuff was thoroughly inspected with findings noted above. The complex supraspinatus tear was thoroughly inspected, mobilized, and debrided lightly of irregular layers and tissue edges. Remarkably, it could be largely reapposed without too much tension to the small amount of the medial footprint and lateral tendon remnant. The self retrieving suture passer was used to place a suture tape FiberLink traction stitch centrally in the torn tendon edge and then the scorpion used to place a solid anterior and posterior suture tape FiberLink through the torn tissue. All 3 sutures were used to confirm provisional reduction. The medial aspect of the greater tuberosity centrally was prepared to optimize bone tendon healing debrided of soft tissue and rasp, the tendon edges were also rasped laterally to allow for tendon [id number] healing. The undersized punch was used followed by placement with appropriate tension and reduction of 4.75 mm SwiveLock anchor. The double loaded repair sutures were then used to add additional fixation. The scorpion was used to shuttle 2 tails of the blue stitch through the posterior margin of the supraspinatus repair and the anterior leading edge of the infraspinatus and secured together arthroscopic knots. Nicely closing and securing the posterior superior rotator cuff together. Anteriorly the remaining 2 tails were placed through the anteriormost portion of the supraspinatus and secured with arthroscopic knots completing repair up to about the level of the bicipital groove. There tear was examined and demonstrated good reduction and stable fixation range of motion and testing. The shoulder was drained of arthroscopic fluid. All portal sites were copiously irrigated. These incisions were closed using 3-0 Monocryl in a buried fashion and then covered with Mastisol, Steri-Strips, Xeroform, dry gauze, and ABDs. The dressings were covered and secured with Medipore tape. The operative extremity was placed into a sling for immobilization. The patient awoke from anesthesia without complication and was transferred to the recovery room in a stable condition.
[2023-08-26] MEDS: ceFAZolin 2 GM/50 ML BAG IVPB (12:51)
[2023-08-26] MEDS: Tranexamic Acid 1,000 MG/10 ML VIAL 1000 MG (13:05)
[2023-08-26] MEDS: EPINEPHrine 10 MG/10 ML ML (13:28)
--- NOTE | 2023-08-26 14:41 | W.ANESNERVE ---
Nerve Block Single Injection Procedure Date and Time Date Performed: 08/26/23 Procedure Start: 12:06 Location Where Procedure Performed Procedure Location: Day Surgery Unit Reason Performed: Postoperative Analgesia Requesting Provider: Jose Manuel Strickland Timeout Performed Timeout Performed: Yes Monitoring Used ECG, Blood Pressure and SpO2 Sterility Sterility: Hand Hygiene, Surgical Cap, Surgical Mask and Sterile Gloves Sedation Given During Procedure Sedation Given (Indicate Dose Given): Versed IV Dose:: 2mg Patient Mental Status Patient Mental Status: Sedate with meaningful communication Nerve Block 1st Nerve Block: Laterality: Left Block Type: Interscalene Ultrasound Image Saved?: Yes Needle / Catheter Used: 100mm SonoPlex II Local Anesthetic Bolus (Indicate Dose Given): Lidocaine used for local infiltration of skin, Injected in 3-5ml increments after negative blood aspiration, Bupivacaine 0.5% Dose:: 10mL and Exparel Dose:: 10mL Additives (Indicate Dose Given): None Ultrasound: Sterile probe cover and gel used Nerve Stimulator: Primary Nerve Stimulator Technique, Supplement to Ultrasound use and No twitch or parasthesia noted < 0.5 mA Paresthesia: None Procedure Tolerated: No Complications and Patient tolerated well Procedure Outcome: Successful Performed By: Eloy Suárez
--- NOTE | 2023-08-26 15:23 | W.ANESPOSTOP ---
Postoperative Evaluation Date, Time and Location Date Performed: 08/26/23 Time Performed: 15:20 Patient Location: Day Surgery Unit Vital Signs Most Recent Imported Vital Signs: Most Recent Vital Signs Temp Pulse Resp BP Pulse Ox 36.2 C L 61 16 149/84 H 98 08/26/23 15:02 08/26/23 15:02 08/26/23 15:02 08/26/23 15:02 08/26/23 15:02 Pain Score Most Recent Pain Score: Most Recent Pain Score Pain Level 0 08/26/23 15:02 Assessment Mental Status: Awake (Alert & Oriented to Patient Baseline) Airway and Respiratory Function: Patent airway with normal (patient baseline) respiratory exam Cardiovascular Function: Hemodynamically Stable Hydration Status: Adequately Hydrated Nausea & Vomiting: No Nausea or Vomiting Pain: Pt. Denies Any Pain Peripheral Nerve Block: Regional nerve block not resolved at time of post operative discharge
== END 2023-08-26 15:56 | disposition home or self-care (01) ==
LOC: SUR 10:51
PROVIDERS: PCP Physician Assistant Medical; Visit Provider Student in an Organized Health Care Education/Training Program
PROC: (CPT 29827; principal; 2023-08-26 12:15)
DX: M75.102 Unspecified rotator cuff tear or rupture of left shoulder, not specified as traumatic (principal); M94.212 Chondromalacia, left shoulder; M75.42 Impingement syndrome of left shoulder; M75.22 Bicipital tendinitis, left shoulder
CPT/HCPCS: 29827; 29828; 29826; 29823; 76942; C1781; C9290; J0665; J0690; J1100; J2250; J2371; J2405; J2704

== ENCOUNTER 2024-05-09 17:00 | Outpatient (REF) | payer MEDICAID, SELFPAY ==
[2024-05-09 20:31] LABS: ALT 24 U/L (16-63); AST 18 U/L (15-37); Albumin 4.2 g/dL (3.4-5.0); Alkaline Phosphatase 98 U/L (46-116); Anion Gap 10.5 mmol/L (3-11); BUN 25 mg/dL (7-18); CO2 26.5 mmol/L (21.0-32.0); CREATININE 0.9 mg/dL (0.70-1.30); Calcium 9.4 mg/dL (8.5-10.1); Calculated LDL 125 mg/dL (<100); Chloride 106 mmol/L (98-107); Cholesterol 224 mg/dL (<200); Estimated GFR 95.97 (mL/min/1.73m2); Glucose 198 mg/dL (74-106); HDL Cholesterol 75 mg/dL (40-60); Sodium 143 mmol/L (136-145); Total Protein 7.2 g/dL (6.4-8.2); Triglyceride 121 mg/dL (<150)
[2024-05-09 21:05] LABS: Uric Acid 3.8 mg/dL (3.5-7.2)
== END 2024-05-09 17:01 | disposition home or self-care (01) ==
LOC: NCHCN 17:00
PROVIDERS: PCP Physician Assistant Medical; Visit Provider Physician Assistant Medical
DX: M10.9 Gout, unspecified (principal); I10 Essential (primary) hypertension
CPT/HCPCS: 80053; 80061; 84550

== ENCOUNTER 2024-05-29 06:57 | Emergency (ER) | payer MEDICAID, SELFPAY ==
[2024-05-29 07:03] VITALS: BP 144/97; PULSE 79; RESP 15; O2SAT 96
[2024-05-29 07:05] VITALS: BP 144/97; PULSE 79; RESP 15; O2SAT 96
--- NOTE | 2024-05-29 07:14 | ED.GENADUL_ITS ---
Discharge Plan Disposition Patient Disposition: Home Condition: Stable Discharge Details Clinical Impression: Abdominal pain of unknown etiology Primary Care Provider: Sintia Lambert ED Provider: Ashly Guillermo Home Meds and New Rx's Prescriptions: No Action allopurinol 300 MG tablet 300 mg PO DAILY colchicine 0.6 MG capsule 0.6 mg PO PRN lisinopril 40 mg tablet 40 mg PO DAILY Discharge Instructions Instructions: Abdominal Pain, Adult ED Additional Instructions: You were seen in the emergency department today for evaluation of abdominal pain. In our department you had a full physical examination performed, had laboratory studies that were reassuring, and had a CT scan that did not show any abnormalities to explain your symptoms. Unfortunately, we are sometimes unable to determine the exact cause of symptoms here in the emergency department, but dangerous causes of your pain were ruled out and it is safe for you to go home and continue Tylenol and ibuprofen as needed for pain. You should follow-up with your primary care provider in the next few days to discuss this visit and any symptoms that change, worsen, or persist. Thank you for allowing us to be part of your care. HPI General Mode of arrival: ambulatory . Date/Time Provider Initiated Documentation: 05/29/24 06:58 . Limitations to Documentation: no limitations . Information obtained by: patient, family and old records reviewed . HPI Narrative: HPI: This is a 63-year-old male patient with a past medical history significant for right inguinal hernia repair several years ago, hyperlipidemia, who is presenting for evaluation of 1 week of gradually worsening right lower quadrant abdominal and groin pain. The patient reports that about a week ago he started to notice intermittent dull pain of the right lower quadrant and groin, seem to be worse with specific positions, and has increased in severity and frequency over the course of the last few days to the point where he felt like he was awake all night last night with pain. He states that he has been eating and drinking normally and eating does not seem to worsen his pain. He has not had associated fever, nausea or vomiting, and denies diarrhea. He had a normal bowel movement this morning and is not experiencing dysuria or hematuria. He has not undergone any additional abdominal surgeries in the past. The pain does not radiate, and he tried an ibuprofen this morning without significant improvement in his pain. He has not noted any worsening with Valsalva or cough, and has not noted any hernial bulge in the area of his old surgery. The patient reports that he is a 1 pack/day smoker, has 2-3 alcoholic beverages per night. Exam: Gen: Awake and alert, in no apparent distress HEENT: Non-icteric sclera Neck: Supple Lungs: No apparent respiratory distress, normal respiratory effort. Lung sounds clear and equal bilaterally CV: Appears well perfused, heart with regular rate and rhythm, strong distal pulses Abdomen: Non-distended, soft, tender to palpation in the right lower quadrant and right groin without rigidity, rebound, or guarding. No pulsatile abdominal masses palpable, fullness of the right groin/pubic region without palpable hernia MSK: Moves 4 extremities without apparent limitation in ROM Skin: Visualized skin without rashes, cyanosis. Neuro: Normal Gait, no obvious focal deficits or facial asymmetry. Speaks in full, clear sentences. Psych: Appropriate for situation. MDM: This is a 63-year-old male patient presenting for evaluation of abdominal pain. My differential includes but is not limited to appendicitis, hernia, though the patient is reassuringly without obstructive symptoms to suggest incarceration or strangulation. I considered urinary tract infection, nephrolithiasis, mesenteric ischemia, aortic pathology. Considered hepatitis, cholecystitis, pancreatitis, diverticulitis, gastroenteritis, peptic ulcer disease. I am reassured by the patient's benign abdominal examination against perforation or other peritonitic abdominal disease. Patient is hemodynamically appropriate, afebrile. We will obtain laboratory studies to include CBC, CMP, lipase, lactate, and urinalysis. I will proceed with a CT abdomen pelvis to better characterize any abnormalities which might account for the patient's symptoms. ED Course: I independently interpreted the laboratory studies, which show no significant leukocytosis, anemia, or thrombocytopenia. The chemistry panel is without evidence of electrolyte abnormality, kidney dysfunction, or liver injury. Lipase and lactate are low, urinalysis noninfectious. Independently interpreted the patient's CT scan, and reviewed the radiology read. There is no evidence of hernia, appendicitis, bowel obstruction, or other emergent cause to explain his lower abdominal pain. His findings were shared with the patient, I recommended conservative management with Tylenol and ibuprofen as well as good hydration and nutrition, as well as follow-up with his primary care provider in the next few days for reassessment. At this time, the patient has had a full medical evaluation and is safe for discharge to home. They are hemodynamically stable, ambulatory, and tolerating PO. They are understanding of the follow-up plan and return precautions. They left our facility without incident. Ashly Guillermo MD Related Data Home Medications ?Medication ?Instructions ?Recorded ?Confirmed allopurinol 300 mg tablet 300 mg PO DAILY 01/04/17 05/29/24 colchicine 0.6 mg capsule 0.6 mg PO PRN 01/04/17 05/29/24 lisinopril 40 mg tablet 40 mg PO DAILY 05/12/22 05/29/24 Allergies Allergy/AdvReac Type Severity Reaction Status Date / Time No Known Allergies Allergy Verified 05/29/24 07:05 General Stated Complaint: Abd Prob SUMMER: 3 Course Vital Signs Vital signs: Vital Signs Pulse 79 05/29/24 07:03 Respiratory Rate 15 05/29/24 07:03 Blood Pressure 144/97 H 05/29/24 07:03 Pulse Oximetry 96 05/29/24 07:03 Pulse 79 05/29/24 07:05 Respiratory Rate 15 05/29/24 07:05 Respiratory Effort Normal 05/29/24 07:04 Blood Pressure 144/97 H 05/29/24 07:05 Blood Pressure Position Sitting 05/29/24 07:05 Pulse Oximetry 96 05/29/24 07:05 Oxygen Delivery Method Room Air 05/29/24 07:05 Oxygen Flow Rate 0 05/29/24 07:05 Pain Level 7 05/29/24 07:05 Medical Decision Making Quality:SDOH Health Related Social Needs: No Data to Display PFSH All Active Problems (Updated 05/29/24 @ 08:45 by Ashly Guillermo MD) Abdominal pain of unknown etiology (Acute) Bursitis of left shoulder (Acute) Biceps tendinitis of left shoulder (Acute) Hyperlipidemia (Acute) Shoulder pain, left (Acute) Medical History (Updated 05/29/24 @ 08:45 by Ashly Guillermo MD) Hx of squamous cell carcinoma of skin Smoker HTN (hypertension) AK (actinic keratosis) Gout Surgical History Hx of inguinal hernia repair Elbow surgery Colonoscopy - MAC (01/14/17) Arthroscopy, Shoulder Family History Mother Alzheimer disease Father Essential hypertension Alzheimer disease Social History Smoking/Tobacco Use Status: Current every day Tobacco Type: cigarettes Smoking risk assessment performed?: Yes Alcohol Intake: current Alcohol Intake frequency: 0-2 drinks per day Alcohol type: beer Drug use: Never Substance use type: does not use Details: alcohol: t-1, one drink Housing: house Current gender identity: male Do you feel safe at home: Yes Do you feel safe in your relationship?: Yes Additional Social history: unable to assess privately PAWSS Have you Been Recently Intoxicated or Drunk Within the Last 30 days?: No Have you Ever Experienced Previous Episodes of Alcohol Withdrawal?: No Have you ever Experienced Withdrawal Seizures?: No Have you ever Experienced Delirium Tremens(DT)s?: No Have you ever undergone Alcohol Rehabilitation Treatment (i.e, inpt ot outpatient treatment programs)?: No Have you ever Experienced Blackouts?: No Have you ever Combined Alcohol with other Downers within the last 90 days?: No Have you ever Combined Alcohol with any other Substance of Abuse during the last 90 days?: No Result: 0
[2024-05-29 07:40] LABS: Abs Immature Grans 0.02 10^3/uL (0.0-0.06); Absolute Basophil Count 0.04 10^3/uL (0.0-0.2); Absolute Lymphocyte Count 2.33 10^3/uL (1.2-3.4); Absolute Monocyte Count 0.65 10^3/uL (0.1-0.8); Absolute Neutrophil Count 6.19 10^3/uL (1.2-6.7); Basophils % 0.4 %; Eosinophils % 2.1 %; HCT 42.8 % (40.0-50.0); HGB 14.7 g/dL (13.5-17.5); Immature Grans % 0.2 %; Lymphocytes % 24.7 %; MCH 35.8 pg (27.0-33.0); MCHC 34.3 % (32.0-36.0); MCV 104 fL (80-95); MPV 9.8 fL (8.0-11.0); Monocytes % 6.9 %; Neutrophils % 65.7 %; Platelet Count 228 10^3/uL (130-400); RBC 4.11 10^6/uL (4.36-5.78); RDW 13.3 % (11.8-14.1); RDW-SD 51.5 fL; WBC 9.43 10^3/uL (4.4-10.8)
[2024-05-29 07:41] LABS: Lactate 0.7 mmol/L (0.6-1.4)
[2024-05-29 07:42] LABS: Bilirubin Negative (Negative); Blood Trace-lysed (Negative); Clarity Clear (Clear); Glucose Negative (Negative); Ketones Negative (Negative); Leukocyte Esterase Negative (Negative); Nitrite Negative (Negative); Urobilinogen 0.2 mg/dL (Up to 0.2); pH 5.5 (5-8)
[2024-05-29 07:50] LABS: Bacteria Rare HPF (Negative); C & S Indicated? No; Casts Negative LPF (Negative); Crystals Negative HPF (Negative); Epithelial Cells Negative HPF (Negative); Mucus Negative (Negative); Other Cells Negative (Negative); RBC Negative HPF (0-2); WBC Negative HPF (0-5)
[2024-05-29 08:01] LABS: ALT 8 U/L (16-63); AST 22 U/L (15-37); Albumin 3.8 g/dL (3.4-5.0); Alkaline Phosphatase 97 U/L (46-116); Anion Gap 7.6 mmol/L (3-11); BUN 12 mg/dL (7-18); Bilirubin, Total 0.84 mg/dL (0.2-1.0); CO2 28.4 mmol/L (21.0-32.0); CREATININE 0.9 mg/dL (0.70-1.30); Calcium 9.7 mg/dL (8.5-10.1); Chloride 103 mmol/L (98-107); Estimated GFR 95.97 (mL/min/1.73m2); Glucose 90 mg/dL (74-106); Lipase 33 U/L (16-77); Magnesium 2.1 mg/dL (1.8-2.4); Potassium 4.4 mmol/L (3.5-5.1); Sodium 139 mmol/L (136-145); Total Protein 7.6 g/dL (6.4-8.2); Troponin I 6 ng/L (<or=76)
[2024-05-29] MEDS: Omnipaque 350 MG/ML 500 ML BTL-Imaging package 85 ML IJ (08:16)
[2024-05-29] MEDS: Normal Saline - Diluent 50 ML VIAL IJ (08:17)
--- NOTE | 2024-05-29 08:18 | DI.CT_ITS ---
Exam(s) CT ABDOMEN PELVIS W EXAM: CT ABDOMEN PELVIS W CLINICAL HISTORY: RLQ pain. TECHNIQUE: Imaging Protocol: Axial computed tomography images with coronal and sagittal reformatted images were created and reviewed CONTRAST MATERIAL: Intravenous: Omnipaque 350 Contrast volume:100 ml Oral: / no COMPARISON: No exams were available for comparison FINDINGS: ABDOMEN and PELVIS: Lung Bases: No acute findings. Liver: Normal density. No suspicious mass. Gallbladder and biliary tract: No radiodense calculus. No biliary dilation. Pancreas: Normal density. No abnormal calcifications or inflammatory process. No evidence of mass. Spleen: Normal. Kidneys: Normal size, contour and axis. No radiodense stones. No obstructive uropathy. No suspicious masses seen. Adrenal glands: No masses seen. Vasculature: Abdominal aorta non-dilated. Mild atherosclerotic changes. Soft tissues: Unremarkable. Bladder: No gross wall thickening. No calculi.No focal mass. Bowel: No obstruction. No bowel wall thickening. Mild diverticulosis. No evidence of diverticulit is. Normal quantity of stool. Appendix normal. Peritoneal cavity: No ascites. No focal collection. No mesenteric inflammatory response. Bones: Advanced degenerative disc disease at L1-2. Mild degenerative scoliosis. Reproductive organs: Unremarkable. Lymph nodes: No pathologically enlarged lymph nodes. IMPRESSION:: No acute abnormality in the abdomen or pelvis. RADIATION DOSE DELIVERED: 336.52mGy.cm Total DLP DATA REPOSITORY: All CT scans at this facility are submitted to the National Radiology Data Registry (NRDR) Dose Index Registry (DIR) with the [employer] ([employer]). RADIATION OPTIMIZATION: All CT scans at this facility use at least one of these dose optimization te chniques: automated exposure control; mA and/or kV adjustment per patient size (includes targeted exa ms where dose is matched to clinical indication); or iterative reconstruction.
[2024-05-29 08:26] VITALS: BP 141/82; RESP 16
[2024-05-29 08:56] VITALS: BP 144/93; PULSE 67; RESP 16; TEMP 36.9; O2SAT 98
== END 2024-05-29 09:18 | disposition home or self-care (01) ==
PROVIDERS: Emergency Provider Emergency Medicine; PCP Physician Assistant Medical
DX: R10.31 Right lower quadrant pain (principal); I10 Essential (primary) hypertension; E78.5 Hyperlipidemia, unspecified; F17.210 Nicotine dependence, cigarettes, uncomplicated
CPT/HCPCS: 36415; 80053; 83690; 99285; 74177; 81003; 81015; 83605; 83735; 84484; 85025

== ENCOUNTER 2025-06-03 15:17 | Outpatient (REF) | payer BC, SELFPAY ==
[2025-06-03 19:25] LABS: ALT 46 U/L (16-63); AST 24 U/L (15-37); Albumin 3.7 g/dL (3.4-5.0); Alkaline Phosphatase 94 U/L (46-116); Anion Gap 9.2 mmol/L (3-11); BUN 19 mg/dL (7-18); Bilirubin, Total 0.4 mg/dL (0.2-1.0); CO2 26.8 mmol/L (21.0-32.0); Calcium 9.1 mg/dL (8.5-10.1); Chloride 103 mmol/L (98-107); Cholesterol 211 mg/dL (<200); Glucose 119 mg/dL (74-106); HDL Cholesterol 63 mg/dL (>or=40); Potassium 4.4 mmol/L (3.5-5.1); Sodium 139 mmol/L (136-145); Total Protein 6.7 g/dL (6.4-8.2)
[2025-06-03 21:30] LABS: Hemoglobin A1C 5.1 % (<5.7)
[2025-06-04 18:50] LABS: PSA, Screening 0.5 ng/mL (<=4.5)
== END 2025-06-03 15:18 | disposition home or self-care (01) ==
LOC: NCHCN 15:17
PROVIDERS: PCP Physician Assistant Medical; Visit Provider Physician Assistant Medical
DX: E78.5 Hyperlipidemia, unspecified (principal); Z13.1 Encounter for screening for diabetes mellitus
CPT/HCPCS: 80053; 80061; 84153; 83036